=== PATIENT | female | born 1950 | race Caucasian/White ===

== ENCOUNTER 2023-09-25 08:58 | Inpatient (IN) | payer OTHER, SELFPAY ==
--- NOTE | 2023-08-21 13:16 | CM ---
Patient is scheduled for an elective R TKR on 09/18/23. Spoke with patient prior to surgery via telephone. Introduced role of Orthopedic Navigator. Patient reports that she lives with her in a two story home. There are three (1-2) steps to
enter and a flight of steps to the second floor. There are two steps into a first floor addition where the powder room is. She states that she can stay on the first floor of her home if needed. She currently functions independently and uses a cane.
She also has a rolling walker. shower seat, standard walker and raised toilet seat. She has never had VN services. PCP is Minesh Zafar.
Discussed orthopedic program and post surgical plans. Reviewed anticipated length of stay and that goal is for her to return home at discharge. Also reviewed outpatient PT. Patient is in agreement with tentative plan and will go directly to
outpatient PT at [facility]. She will have support from her when she goes home.
Patient will complete online education.
Plan: Orthopedic Navigator will remain available to assist with the care of patient and will reassess discharge needs after surgery.
[2023-08-31 12:52] VITALS: BMI 23.2
[2023-08-31 13:41] LABS: Hematocrit 33.4 % (37.0-47.0); Hemoglobin 10.9 g/dL (12.0-16.0); Mean Corp Hgb Conc. 32.6 g/dL (33.0-37.0); Mean Corpuscular Hgb 28.8 pg (27.0-31.0); Mean Corpuscular Volume 88.1 fL (81.0-99.0); Mean Platelet Volume 11.4 fL (7.4-10.4); Platelet Count 326 10^3/uL (130-400); Red Blood Cell Count 3.79 10^6/uL (4.20-5.40); Red Cell Dist. Width 14.4 % (11.5-14.5); White Blood Cell Count 8.6 10^3/uL (4.8-10.8)
[2023-08-31 14:03] LABS: ALT (SGPT) 12 U/L (0-35); AST (SGOT) 24 U/L (14-36); Alkaline Phosphatase 140 U/L (38-126); Blood Urea Nitrogen 15 mg/dl (7-17); Carbon Dioxide 21 mmol/L (22-30); Chloride 105 mmol/L (98-107); Estimated Creatinine Clearance 73 ml/min; Glucose 84 mg/dl (70-99); Potassium 4.7 mmol/L (3.5-5.1); Sodium 136 mmol/L (135-145); Total Bilirubin 0.5 mg/dl (0.2-1.3); Total Protein 6.7 g/dl (6.3-8.2); eGFR > 60.00
[2023-08-31 14:44] LABS: Glycohemoglobin (HgbA1c) 5.5 % (4.0-5.6)
[2023-09-21 11:00] VITALS: BMI 23.2
[2023-09-25] VITALS (14 sets, daily range): BP systolic 103–149; BP diastolic 54–87; PULSE 85; O2SAT 99; BMI 23.2
[2023-09-25] MEDS: TYLENOL 650 MG PO ×4 (09:03→23:24)
[2023-09-25] MEDS: CELEBREX 200 MG PO (09:03)
[2023-09-25] MEDS: BACTROBAN NASAL 1 GRAM NASAL (09:23)
[2023-09-25] MEDS: NORMOSOL-R 1000 IV ×2 (09:27→15:45)
--- NOTE | 2023-09-25 11:24 | W.DS.TRANS ---
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
-
Discharge Instructions:
Sleep Apnea Risk Low
Discharge Diagnosis/Procedures R SHEILA Mariee 09/25/23
Diet As tolerated
Activity With Walker
Driving Restrictions No driving
Bathing Restrictions OK to Shower
Other Services PT
Instructions:
Stand-Alone Forms:
Changes to Home Medications: Yes
Discharge Medications:
DC Medications w/original date entered in [employer]
Sylvia 1 cap PO PRN PRN GI issues 09/20/23
Turmeric-Elissa Tab 1 tab PO DAILY 09/20/23
amitriptyline 50 mg tablet 150 mg PO HS 09/20/23
cefadroxil 500 mg capsule 500 mg PO DIRECTED 09/20/23
cholecalciferol (vitamin D3) 25 mcg (1,000 unit) tablet (Vitamin D3) 25 mcg PO DAILY 09/20/23
diltiazem HCl 60 mg capsule,extended release 12 hr 60 mg PO BID 09/20/23
estradiol 0.75 mg/0.75 gram (0.1%) transdermal gel packet 1 topical .TWICE A WEEK 09/20/23
folic acid 1 mg tablet 1 mg PO DAILY 09/20/23
hydroxychloroquine 200 mg tablet 200 mg PO DAILY 09/20/23
latanoprost 0.005 % eye drops 1 drp ophthalmic (eye) DAILY right eye 09/20/23
levothyroxine 175 mcg tablet 175 mcg PO DAILY 09/20/23
liothyronine 5 mcg tablet (Cytomel) 5 mcg PO DAILY 09/20/23
methotrexate sodium 2.5 mg tablet 10 mg PO QWEEK 09/20/23
vibegron 75 mg tablet (Gemtesa) 75 mg PO HS 09/20/23
vitamins A,C,Q-ypns-aponmb 2,148 mcg-113 mg-45 mg-17.4 mg tablet (PreserVision AREDS) 1 tab PO DAILY 09/20/23
Saccharomyces boulardii 250 mg capsule (Florastor) 250 mg PO BID #1 cap 09/25/23
acetaminophen 325 mg capsule (Tylenol) 650 mg (2 x 325 mg) PO QID #2 caps 09/25/23
aspirin 325 mg tablet 325 mg PO DAILY blood clot prevention #1 tab 09/25/23
celecoxib 100 mg capsule 100 mg PO BID #0 caps 09/25/23
dexamethasone 4 mg tablet 4 mg PO BID #0 tabs 09/25/23
docusate sodium 100 mg capsule (Colace) 100 mg PO BID stool softner #1 cap 09/25/23
famotidine 20 mg tablet 20 mg PO HS GI prophylaxis #30 tabs 09/25/23
magnesium hydroxide 400 mg/5 mL oral suspension (Milk of Magnesia) 30 ml PO HS PRN Constipation #1 mL 09/25/23
mupirocin 2 % topical ointment 1 applic topical BID #0 grams 09/25/23
ondansetron HCl 4 mg tablet 4 mg PO Q6H PRN nausea #0 tabs 09/25/23
oxycodone 5 mg tablet 5 mg PO Q4H PRN 1 tab moderate pain, 2 tabs if severe #0 tabs 09/25/23
sennosides 8.6 mg tablet (Senokot) 17.2 mg (2 x 8.6 mg) PO BID laxative #2 tabs 09/25/23
Home Medication Changes
Saccharomyces boulardii 250 mg capsule (Florastor) 250 mg PO BID #1 cap 09/25/23�
celecoxib 100 mg capsule 100 mg PO BID #0 caps 09/25/23�
dexamethasone 4 mg tablet 4 mg PO BID #0 tabs 09/25/23�
famotidine 20 mg tablet 20 mg PO HS GI prophylaxis #30 tabs 09/25/23�
mupirocin 2 % topical ointment 1 applic topical BID #0 grams 09/25/23�
ondansetron HCl 4 mg tablet 4 mg PO Q6H PRN nausea #0 tabs 09/25/23�
oxycodone 5 mg tablet 5 mg PO Q4H PRN 1 tab moderate pain, 2 tabs if severe #0 tabs 09/25/23
Pending Results: No
--- NOTE | 2023-09-25 13:53 | PTCARENOTE ---
Patient checked on several times while waiting to be taken to the OR. Patient offered warm blankets and bathroom trip. Patient did void when it was offered. at bedside with patient. Will monitor patient.
--- NOTE | 2023-09-25 14:02 | W.PN.UPDATE ---
Update Note
Progress Note Update
Anemia-check iron and B12 levels-renal function in range
NSVT-tele
[2023-09-25] MEDS: DEMEROL 12.5 MG IV (15:21)
[2023-09-25] MEDS: ROXICODONE 5 MG PO (15:55)
--- NOTE | 2023-09-25 16:36 | SUR.PHASEI ---
patient post right total knee replacement with spinal. moving feet on arrival. anxious after 15min in pacu, shivers, shaking. able to calm patient with talking and then Demerol 12.5mg IV for shivers and pressure right knee with relief. Patient
attempted to use bedpan - unsuccessful - bladder scan for 1100. straight cath without difficulty for 1325 clear pale yellow urine. patient tolerated well. Roxicodone started as ordered. vss, discharge to [address] [place] [address] tele - hand off at bedside.
called and advised
[2023-09-25 17:17] LABS: Iron 38 ug/dl (37-170)
[2023-09-25 17:26] LABS: Percent Saturation 12 % (20-50); Total Iron Binding Capacity 296 ug/dl (265-497)
[2023-09-25 17:44] LABS: Ferritin 69.3 ng/ml (11.1-264.0)
[2023-09-25 17:59] LABS: Vitamin B12 771 pg/ml (239-931)
--- NOTE | 2023-09-25 18:00 | PTCARENOTE ---
pt admitted to room 2112 from the PACU at 1625. pt arrived awake and alert via bed. oriented to room, bed controls, call loza and plan of care with verbalized understanding. assessment and admission database completed as documented. telemetry
placed and reading SR w/pvc's. pt offering no c/o discomfort. will observe.
[2023-09-25] MEDS: ASPIRIN 325 MG PO (18:16)
[2023-09-25] MEDS: BACTROBAN 2% OINTMENT 1 APPLIC NASAL (20:55)
[2023-09-25] MEDS: SENOKOT 17.2 MG PO (20:55)
[2023-09-25] MEDS: ANCEF 5 IV (20:55)
[2023-09-25] MEDS: TORADOL 15 MG IV (20:55)
[2023-09-25] MEDS: DECADRON 4 MG PO (20:59)
[2023-09-25] MEDS: COLACE 100 MG PO (20:59)
[2023-09-25] MEDS: NEURONTIN 300 MG PO (21:18)
[2023-09-25] MEDS: ELAVIL 150 MG PO (21:18)
[2023-09-25] MEDS: XALATAN OPHTHALMIC SOLUTION 1 DROP OPHTH (21:19)
[2023-09-25] MEDS: PEPCID 40 MG PO (21:19)
[2023-09-25] MEDS: CARDIZEM 30 MG PO (22:20)
[2023-09-26 03:29] VITALS: BP 133/77
[2023-09-26] MEDS: TYLENOL 650 MG PO ×3 (04:43→11:54)
[2023-09-26] MEDS: ANCEF 5 IV (04:44)
[2023-09-26] MEDS: SYNTHROID 175 MCG PO (05:01)
[2023-09-26 06:00] VITALS: BMI 22.9
[2023-09-26 07:29] VITALS: BP 145/78
[2023-09-26] MEDS: CYTOMEL 5 MICROGRAM PO (08:04)
[2023-09-26] MEDS: ASPIRIN 325 MG PO (08:05)
[2023-09-26] MEDS: MOBIC 15 MG PO (08:05)
[2023-09-26] MEDS: CARDIZEM SR 60 MG PO (08:05)
[2023-09-26] MEDS: PLAQUENIL 200 MG PO (08:05)
[2023-09-26] MEDS: SENOKOT 17.2 MG PO (08:05)
[2023-09-26] MEDS: COLACE 100 MG PO (08:06)
[2023-09-26] MEDS: DECADRON 4 MG PO (08:06)
[2023-09-26] MEDS: TORADOL 15 MG IV (08:07)
[2023-09-26] MEDS: BACTROBAN 2% OINTMENT 1 APPLIC NASAL (08:08)
--- NOTE | 2023-09-26 08:41 | CM ---
Addendum entered by Amada Todd 09/26/23 12:40:
Patient did well in therapy. She has no concerns about discharge and has updated her daughter. Her daughter will be present for discharge instructions; RN aware.
Original Note:
Reviewed chart and held rounds with PT, OT and nursing. Patient admitted as planned for elective R TKR. Met with patient at bedside. Confirmed information previously obtained for assessment. Also discussed discharge plans. The plan is for patient to
return home at discharge. She will have support from her when she goes home. Her daughter and son-in-law will be staying with her for a week. Patient will go directly to outpatient PT and will go to [facility]. She has an appointment
scheduled for Monday, 09/26.
Patient has all needed DME.
She will use [facility] pharmacy if additional discharge prescriptions are needed.
--- NOTE | 2023-09-26 10:29 | W.PN.ORTHO ---
Today's Communication / Plan
-
d/c
Assessment
.
Distal Motor Intact: Yes
Dressing:
Clean, dry and intact.
Assessment:
Anemia-check iron borderline low range-will infuse IV prior to discharge-patient states this is baseline for years and does not know etiology. She is hemodynamically stable with no incisional drainage nor hypotension
NSVT-stable on tele-asx
Plan
.
Surgery / Date: R TKA Dr. Mariee 09/25/23
DVT Prophylaxis: Aspirin
Activity:
Out of bed.
PT/OT
Discharge Plan: Home w/ Outpatient PT
Subjective
.
.:
Patient resting comfortably.
Vital Signs and Labs
.
Vital Signs and Labs:
Lab Results
08/31/23 12:58
08/31/23 12:58
Temp Pulse Resp BP Pulse Ox
97.2 F 91 16 145/78 98
09/26/23 07:29 09/26/23 08:05 09/26/23 07:29 09/26/23 08:05 09/26/23 07:29
Non-invasive Hgb result: 10.5
Physical Exam
-
HEENT: No pallor, cyanosis, or jaundice. Throat clear.
NECK: Supple. No JVD.
RESPIRATORY: Lungs clear to auscultation.
CVS: S1, S2 normal. RRR.� No murmur, rub or gallop.
ABDOMEN: Soft, non-tender. No distension. BS+/normal.
EXTREMITIES: strength equal, no calf pain with palpation
SUPERVISOR MOLD SHOP: AOx3. No focal deficits. accounts specialist grossly intact
[2023-09-26 11:00] VITALS: BP 133/64; PULSE 92; O2SAT 100
[2023-09-26 11:06] VITALS: BP 124/68
[2023-09-26] MEDS: FERRLECIT 110 MG IV (11:19)
[2023-09-26 12:25] VITALS: BP 113/61; PULSE 94; O2SAT 100
== END 2023-09-26 14:26 | disposition home or self-care (01) | DRG 470 ==
LOC: 2 SOUTH 08:58
PROVIDERS: Physician Assistant Medical; ADMITTING PHYSICIAN Specialist; FAMILY PHYSICIAN Family Medicine
PROC: 0SRC0J9 Replacement of Right Knee Joint with Synthetic Substitute, Cemented, Open Approach (ICD-10-PCS; 2023-09-25)
DX: M17.11 Unilateral primary osteoarthritis, right knee (principal); I47.29 Other ventricular tachycardia; E89.0 Postprocedural hypothyroidism; D64.9 Anemia, unspecified; M06.9 Rheumatoid arthritis, unspecified; F31.9 Bipolar disorder, unspecified; Z85.850 Personal history of malignant neoplasm of thyroid; Z79.890 Hormone replacement therapy; Z79.899 Other long term (current) drug therapy; Z88.0 Allergy status to penicillin; Z79.52 Long term (current) use of systemic steroids
CPT/HCPCS: 36415; 73560; 80053; 82607; 82728; 83036; 83540; 83550; 85027; 86850; 86900; 86901; 87070; 97110; 97116; 97162; 97166; C1713; C1776; J2916

== ENCOUNTER → 2024-01-18 10:20 | Outpatient (REF) | payer OTHER, SELFPAY | LOC: RAD 10:20 | PROVIDERS: ATTENDING PHYSICIAN Family Medicine | DX: Z78.0 Asymptomatic menopausal state (principal) | CPT/HCPCS: 77080 ==

== ENCOUNTER → 2024-04-22 10:31 | Outpatient (REF) | payer OTHER, SELFPAY ==
[2024-04-22 11:24] LABS: % Basophils 0.8 % (0-2); % Eosinophils 2.5 % (0-6); % Immature Granulocytes 0.4 % (0-0.5); % Lymphocytes 20.1 % (20.5-51.1); % Monocytes 8.3 % (1.7-9.3); % Neutrophils 67.9 % (42.2-75.2); Absolute Basophils 0.1 10^3/uL (0-0.2); Absolute Eosinophils 0.2 10^3/uL (0-0.7); Absolute Lymphocytes 1.7 10^3/uL (1.2-3.4); Absolute Monocytes 0.7 10^3/uL (0.1-0.6); Absolute Neutrophils 5.6 10^3/uL (1.4-6.5); Hematocrit 35.7 % (37.0-47.0); Hemoglobin 11.3 g/dL (12.0-16.0); Mean Corp Hgb Conc. 31.7 g/dL (33.0-37.0); Mean Corpuscular Hgb 26.3 pg (27.0-31.0); Mean Corpuscular Volume 83.2 fL (81.0-99.0); Mean Platelet Volume 10.7 fL (7.4-10.4); Nucleated Red Blood Cells % 0 %; Platelet Count 344 10^3/uL (130-400); Red Blood Cell Count 4.29 10^6/uL (4.20-5.40); Red Cell Dist. Width 16.4 % (11.5-14.5); White Blood Cell Count 8.3 10^3/uL (4.8-10.8)
[2024-04-22 11:49] LABS: Erythrocyte Sed Rate 63 mm/hour (0-20)
[2024-04-22 12:11] LABS: ALT (SGPT) 15 U/L (0-35); AST (SGOT) 24 U/L (14-36); Albumin 4.3 g/dl (3.5-5.0); Alkaline Phosphatase 163 U/L (38-126); Blood Urea Nitrogen 21 mg/dl (7-17); Calcium 9.8 mg/dl (8.4-10.2); Carbon Dioxide 25 mmol/L (22-30); Chloride 103 mmol/L (98-107); Glucose 84 mg/dl (70-99); Potassium 4.5 mmol/L (3.5-5.1); Sodium 137 mmol/L (135-145); Total Bilirubin 0.7 mg/dl (0.2-1.3); Total Protein 7.1 g/dl (6.3-8.2); eGFR > 60.00
== END ==
LOC: REG 10:31
PROVIDERS: ATTENDING PHYSICIAN Internal Medicine Rheumatology; FAMILY PHYSICIAN Family Medicine; REFERRING PHYSICIAN Physician Assistant Surgical
DX: M05.79 Rheumatoid arthritis with rheumatoid factor of multiple sites without organ or systems involvement (principal); Z86.19 Personal history of other infectious and parasitic diseases; M17.12 Unilateral primary osteoarthritis, left knee
CPT/HCPCS: 36415; 80053; 85025; 85045; 85652; 86140

== ENCOUNTER 2024-04-29 09:40 | Inpatient (IN) | payer OTHER, SELFPAY ==
[2024-04-03 14:32] VITALS: BMI 23.5
[2024-04-03 15:12] LABS: Hematocrit 33.9 % (37.0-47.0); Hemoglobin 10.9 g/dL (12.0-16.0); Mean Corp Hgb Conc. 32.2 g/dL (33.0-37.0); Mean Corpuscular Hgb 26.8 pg (27.0-31.0); Mean Corpuscular Volume 83.5 fL (81.0-99.0); Mean Platelet Volume 11.3 fL (7.4-10.4); Platelet Count 343 10^3/uL (130-400); Red Blood Cell Count 4.06 10^6/uL (4.20-5.40); Red Cell Dist. Width 16.3 % (11.5-14.5); White Blood Cell Count 8.9 10^3/uL (4.8-10.8)
[2024-04-03 15:48] LABS: ALT (SGPT) 14 U/L (0-35); AST (SGOT) 24 U/L (14-36); Albumin 3.9 g/dl (3.5-5.0); Alkaline Phosphatase 155 U/L (38-126); Blood Urea Nitrogen 21 mg/dl (7-17); Calcium 9.5 mg/dl (8.4-10.2); Carbon Dioxide 24 mmol/L (22-30); Chloride 102 mmol/L (98-107); Estimated Creatinine Clearance 73 ml/min; Glucose 93 mg/dl (70-99); Potassium 4.8 mmol/L (3.5-5.1); Sodium 135 mmol/L (135-145); Total Bilirubin 0.2 mg/dl (0.2-1.3); Total Protein 6.7 g/dl (6.3-8.2); eGFR > 60.00
[2024-04-04 08:32] LABS: Glycohemoglobin (HgbA1c) 5.7 % (4.0-5.6)
[2024-04-23 11:48] VITALS: BMI 23.5
[2024-04-29] VITALS (9 sets, daily range): BP systolic 111–134; BP diastolic 56–77; PULSE 73; O2SAT 100
[2024-04-29] MEDS: NORMOSOL-R/PLASMALYTE-A 1000 IV ×3 (10:50→17:44)
[2024-04-29] MEDS: CELEBREX 200 MG PO (10:51)
[2024-04-29] MEDS: TYLENOL 650 MG PO ×4 (10:51→23:30)
--- NOTE | 2024-04-29 13:22 | W.PN.UPDATE ---
Update Note
Progress Note Update
L knee OA s/p L TKA w/ Dr Mariee 04/29/24
- s/p R TKA, 09/2023, by Dr Mariee
DVT prophylaxis - ASA, b/l venous foot pumps
NSVT, PVCs - monitor on tele
Chronic anemia - borderline low iron previously - IV iron prior to d/c
- Non-invasive hgb in AM
Mitral regurgitation
Thyroid cancer s/p thyroidectomy
Post-surgical hypothyroidism
RA
OAB w/ urge incontinence
Lyme disease
Glaucoma
Bipolar disorder
Depression
Osteoporosis
MARTHA positive
Tinnitus
H/o tobacco abuse
Pt is appropriate for early discharge
[2024-04-29] MEDS: ROXICODONE 5 MG PO (15:41)
--- NOTE | 2024-04-29 16:59 | SUR.PHASEI ---
patient in pacu post op left TKA - awake and alert. no pain while in pacu, anxious, reassured, questions answered. Medicated with Roxicodone and tylenol as ordered. Attempted to use bedpan - unsuccessful. Bladder scan for >850. Straight cath
using steril technique for 1050 clear yellow urine. Patient tolerated well. Transferred to [address] [place] [address]
[2024-04-29] MEDS: VITAMIN D3 (cholecalciferol) 25 MCG PO (18:03)
[2024-04-29] MEDS: ASPIRIN 325 MG PO (18:03)
[2024-04-29] MEDS: FERRLECIT 110 MG IV (18:05)
--- NOTE | 2024-04-29 19:21 | PTCARENOTE ---
Pt arrived aprox 1630 from PACU in bed. Pt had T LKA done. Dressing intact with ice pack applied. Pt with good sensation at the time to left lower leg. Admission and assessment completed. Pain level controlled. PT worked with patient and assisted
to chair for dinner. Instructed pt to ring for assistance and not to get up unassisted.
[2024-04-29] MEDS: BACTROBAN 2% OINTMENT 1 APPLIC NASAL (20:59)
[2024-04-29] MEDS: ANCEF 5 IV (20:59)
[2024-04-29] MEDS: PLAQUENIL 100 MG PO (21:00)
[2024-04-29] MEDS: SENOKOT 17.2 MG PO (21:01)
[2024-04-29] MEDS: CARDIZEM SR 60 MG PO (21:01)
[2024-04-29] MEDS: COLACE 100 MG PO (21:02)
[2024-04-29] MEDS: PEPCID 20 MG PO (21:02)
[2024-04-29] MEDS: DECADRON 4 MG PO (21:02)
[2024-04-29] MEDS: FOLVITE 1 MG PO (21:02)
[2024-04-29] MEDS: ELAVIL 150 MG PO (21:03)
[2024-04-29] MEDS: XALATAN OPHTHALMIC SOLUTION 1 DROP OPHTH (21:08)
[2024-04-30] MEDS: ANCEF 5 IV (03:43)
[2024-04-30 03:45] VITALS: BP 122/61
[2024-04-30] MEDS: TYLENOL 650 MG PO ×2 (03:48→08:20)
[2024-04-30] MEDS: SYNTHROID 175 MCG PO (05:29)
[2024-04-30] MEDS: CYTOMEL 5 MICROGRAM PO (05:29)
--- NOTE | 2024-04-30 06:51 | PTCARENOTE ---
Pt offered scheduled 0630 oxycodone. Pt denied pain and refused medication. education provided regarding pain management prior to physical therapy.
[2024-04-30 07:20] VITALS: BP 114/6
[2024-04-30] MEDS: MYRBETRIQ EXTENDED RELEASE 25 MG PO (08:19)
[2024-04-30] MEDS: FOLVITE 1 MG PO (08:19)
[2024-04-30] MEDS: COLACE 100 MG PO (08:19)
[2024-04-30] MEDS: CARDIZEM SR 60 MG PO (08:19)
[2024-04-30] MEDS: DECADRON 4 MG PO (08:19)
[2024-04-30] MEDS: SENOKOT 17.2 MG PO (08:19)
[2024-04-30] MEDS: CELEBREX 200 MG PO (08:19)
[2024-04-30] MEDS: VITAMIN D3 (cholecalciferol) 25 MCG PO (08:19)
[2024-04-30] MEDS: ASPIRIN 325 MG PO (08:19)
[2024-04-30 08:20] VITALS: BP 107/51; BP 115/68
[2024-04-30] MEDS: BACTROBAN 2% OINTMENT 1 APPLIC NASAL (08:20)
[2024-04-30] MEDS: PLAQUENIL 100 MG PO (08:22)
[2024-04-30 08:27] LABS: Hepatitis C Antibody Negative (Negative)
--- NOTE | 2024-04-30 08:50 | W.PN.ORTHO ---
Today's Communication / Plan
-
Await PT recs.
D/c later today if remaining clinically stable.
Assessment
.
Distal Motor Intact: Yes
Dressing:
Old incisional bleeding along incision line
Assessment:
L knee OA s/p L TKA w/ Dr Mariee 04/29/24
- s/p R TKA, 09/2023, by Dr Mariee
DVT prophylaxis - ASA, b/l venous foot pumps
Post-op urinary retention - IV straight cath x1 in PACU - resolved by POD 1
NSVT, PVCs - rhythm stable on tele
Chronic anemia - borderline low iron previously - s/p IV iron POD 0
- Non-invasive hgb stable at 10.1 POD 1
- Asymptomatic, hemodynamically stable
- Will suggest oral iron upon d/c
Mitral regurgitation
Thyroid cancer s/p thyroidectomy
Post-surgical hypothyroidism
RA
OAB w/ urge incontinence
Lyme disease
Glaucoma
Bipolar disorder
Depression
Osteoporosis
MARTHA positive
Tinnitus
H/o tobacco abuse
Pt is appropriate for early discharge
Plan
.
Surgery / Date: L TKA w/ Dr Mariee 04/29/24
DVT Prophylaxis: Aspirin
Activity:
Out of bed.
PT/OT
Discharge Plan: Home w/ Outpatient PT
Subjective
.
.:
Patient resting comfortably in her chair.
L knee pain overnight well controlled w/ minimal pain meds.
Denies any new significant complaints.
Did well w/ OT this AM. Will work w/ PT after breakfast.
Eager for potential d/c today.
Vital Signs and Labs
.
Vital Signs and Labs:
Lab Results
04/03/24 14:06
04/03/24 14:06
Temp Pulse Resp BP Pulse Ox
97.5 F 84 16 114/6 96
04/30/24 07:20 04/30/24 07:20 04/30/24 07:20 04/30/24 07:20 04/30/24 07:20
Non-invasive Hgb result: 10.1
Physical Exam
-
HEENT: No pallor, cyanosis, or jaundice. Throat clear.
NECK: Supple. No JVD.
RESPIRATORY: Lungs clear to auscultation.
CVS: S1, S2 normal. RRR.�
ABDOMEN: Soft, non-tender. No distension.
EXTREMITIES: Mild post-surgical L knee edema. Strength equal, no calf pain with palpation/dorsiflexion. Calves soft.
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 No focal deficits. food mobile driver grossly intact
[2024-04-30 09:15] VITALS: BP 110/58; PULSE 89; O2SAT 100
--- NOTE | 2024-04-30 09:21 | W.DS.TRANS ---
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
-
Discharge Instructions:
Sleep Apnea Risk Low
Discharge Diagnosis/Procedures L knee OA s/p L TKA w/ Dr Mariee 04/29/24
Diet Regular
Activity As tolerated,With Walker
Driving Restrictions Not until seen by your Dr
Bathing Restrictions OK to Shower
Other Services PT
Wound Care Dressing to be removed 1 week post-surgery.
[place] to be removed at 2 week follow-up with
surgeon's office.
Instructions:
Stand-Alone Forms: Total Hip/Knee Replacement D/C
Changes to Home Medications: Yes
Discharge Medications:
DC Medications w/original date entered in [employer]
amitriptyline 50 mg tablet 150 mg PO HS Depression 09/20/23
cholecalciferol (vitamin D3) 25 mcg (1,000 unit) tablet (Vitamin D3) 25 mcg PO DAILY Supplement 09/20/23
diltiazem HCl 60 mg capsule,extended release 12 hr 60 mg PO BID Arrhythmia 09/20/23
estradiol 0.75 mg/0.75 gram (0.1%) transdermal gel packet 1 topical .TWICE A WEEK Hormonal Agent 09/20/23
folic acid 1 mg tablet 1 mg PO BID Supplement 09/20/23
latanoprost 0.005 % eye drops 1 drp ophthalmic (eye) DAILY right eye 09/20/23
levothyroxine 175 mcg tablet 175 mcg PO MOTUWETHFRSA Thyroid 09/20/23
liothyronine 5 mcg tablet (Cytomel) 5 mcg PO MOTUWETHFRSA Thyroid 09/20/23
vitamins A,C,L-chqr-dvatji 2,148 mcg-113 mg-45 mg-17.4 mg tablet (PreserVision AREDS) 1 tab PO DAILY Eye Condition 09/20/23
mupirocin 2 % topical ointment 1 applic topical BID #0 grams 09/25/23
Menopause Health 1 dose PO DAILY Supplement 04/23/24
calcium 1 dose PO DAILY Supplement 04/23/24
krill oil 1 dose PO DAILY Supplement 04/23/24
magnesium 1 dose PO DAILY Supplement 04/23/24
mirabegron 8 mg/mL oral suspension,extended release (Myrbetriq) 25 mg PO DAILY Urinary Issue 04/23/24
vitamin K2 1 dose PO DAILY Supplement 04/23/24
Saccharomyces boulardii 250 mg capsule (Florastor) 250 mg PO BID #14 caps 04/30/24
acetaminophen 325 mg tablet (Tylenol) 650 mg (2 x 325 mg) PO Q4HWA #60 tabs 04/30/24
aspirin 325 mg tablet 325 mg PO DAILY #30 tabs 04/30/24
cefadroxil 500 mg capsule 500 mg PO Q12H #14 caps 04/30/24
celecoxib 100 mg capsule 100 mg PO BID #30 caps 04/30/24
dexamethasone 4 mg tablet 4 mg PO Q12H Anti-inflammatory #7 tabs 04/30/24
docusate sodium 100 mg capsule 100 mg PO BID #30 caps 04/30/24
famotidine 20 mg tablet 20 mg PO HS #30 tabs 04/30/24
ferrous sulfate 325 mg (65 mg iron) tablet 325 mg PO DAILY #30 tabs 04/30/24
hydroxychloroquine 200 mg tablet 100 mg (1/2 x 200 mg) PO BID #1 tab 04/30/24
methotrexate sodium 2.5 mg tablet 10 mg (4 x 2.5 mg) PO WE Autoimmune Disorder #0 tabs 04/30/24
ondansetron HCl 4 mg tablet 4 mg PO Q6H PRN nausea and vomiting #30 tabs 04/30/24
oxycodone 5 mg tablet 5 - 10 mg (1 - 2 x 5 mg) PO Q6H PRN moderate-severe pain #30 tabs 04/30/24
sennosides 8.6 mg tablet (Leslye-jennifer) 17.2 mg (2 x 8.6 mg) PO BID #30 tabs 04/30/24
Home Medication Changes
Saccharomyces boulardii 250 mg capsule (Florastor) 250 mg PO BID #14 caps 04/30/24
acetaminophen 325 mg tablet (Tylenol) 650 mg (2 x 325 mg) PO Q4HWA #60 tabs 04/30/24
aspirin 325 mg tablet 325 mg PO DAILY #30 tabs 04/30/24
cefadroxil 500 mg capsule 500 mg PO Q12H #14 caps 04/30/24
celecoxib 100 mg capsule 100 mg PO BID #30 caps 04/30/24
dexamethasone 4 mg tablet 4 mg PO Q12H Anti-inflammatory #7 tabs 04/30/24
docusate sodium 100 mg capsule 100 mg PO BID #30 caps 04/30/24
famotidine 20 mg tablet 20 mg PO HS #30 tabs 04/30/24
ferrous sulfate 325 mg (65 mg iron) tablet 325 mg PO DAILY #30 tabs 04/30/24
ondansetron HCl 4 mg tablet 4 mg PO Q6H PRN nausea and vomiting #30 tabs 04/30/24
oxycodone 5 mg tablet 5 - 10 mg (1 - 2 x 5 mg) PO Q6H PRN moderate-severe pain #30 tabs 04/30/24
sennosides 8.6 mg tablet (Leslye-jennifer) 17.2 mg (2 x 8.6 mg) PO BID #30 tabs 04/30/24
Pending Results: No
--- NOTE | 2024-04-30 10:14 | CM ---
Patient seen at bedside.
IA completed
CM consult completed
Lives with spouse 2 story honme, 2 steps to enter, flight to second floor bedroom, powder room 1st floor
PLOF: independent
DME: matt [facility]rera
PT/OT evals completed-outpatient rec
States has an appt with outpatient PT with [facility] in [place]
Denies insecurities
IMM explained & signed. In chart
PCP: Minesh Zafar
Pharmacy: [facility], [facility], [place]
PLAN: home with outpatient PT with [facility] in [place]
to transport
[2024-04-30 11:15] VITALS: BP 125/62
== END 2024-04-30 11:34 | disposition home or self-care (01) | DRG 470 ==
LOC: 2 SOUTH 09:40
PROVIDERS: ADMITTING PHYSICIAN Specialist; FAMILY PHYSICIAN Family Medicine; REFERRING PHYSICIAN Internal Medicine Cardiovascular Disease
PROC: 0SRD0J9 Replacement of Left Knee Joint with Synthetic Substitute, Cemented, Open Approach (ICD-10-PCS; 2024-04-29)
DX: M17.12 Unilateral primary osteoarthritis, left knee (principal); I47.20 Ventricular tachycardia, unspecified; I34.0 Nonrheumatic mitral (valve) insufficiency; M06.9 Rheumatoid arthritis, unspecified; F31.9 Bipolar disorder, unspecified; E89.0 Postprocedural hypothyroidism; R33.8 Other retention of urine; D64.9 Anemia, unspecified; N32.81 Overactive bladder; I49.3 Ventricular premature depolarization; R76.8 Other specified abnormal immunological findings in serum; H40.9 Unspecified glaucoma; E61.1 Iron deficiency; E53.8 Deficiency of other specified B group vitamins; E55.9 Vitamin D deficiency, unspecified; Z96.651 Presence of right artificial knee joint; Z87.891 Personal history of nicotine dependence; Z79.890 Hormone replacement therapy; Z79.899 Other long term (current) drug therapy; Z88.0 Allergy status to penicillin; Z85.850 Personal history of malignant neoplasm of thyroid
CPT/HCPCS: 36415; 73560; 80053; 83036; 85027; 86803; 86850; 86900; 86901; 87070; 97162; 97166; 97530; 97535; C1713; C1776; J2916

== ENCOUNTER → 2024-09-10 13:48 | Outpatient (REF) | payer OTHER, SELFPAY | LOC: RAD 13:48 | PROVIDERS: ATTENDING PHYSICIAN Family Medicine | DX: R60.0 Localized edema (principal) | CPT/HCPCS: 73100; 73120 ==

== ENCOUNTER 2024-09-23 09:43 | Inpatient (IN) | payer OTHER, SELFPAY ==
--- NOTE | 2024-08-09 14:15 | CM ---
CM reviewed medical records. Patient confirmed demographics. Patient lives independently with . Patient is not current with any VN agency. No reported history fo SNF. Patient has DME equipment: walker, cane, raised toilet seat.
Patient is active with her PCP. Patient plans to use [facility] for medication services.
PLAN: home, with outpatient PT.
[2024-09-10 14:10] VITALS: BMI 23.6
[2024-09-10 14:44] LABS: Hematocrit 32.4 % (37.0-47.0); Hemoglobin 10.8 g/dL (12.0-16.0); Mean Corp Hgb Conc. 33.3 g/dL (33.0-37.0); Mean Corpuscular Volume 82.9 fL (81.0-99.0); Platelet Count 305 10^3/uL (130-400); Red Cell Dist. Width 16.9 % (11.5-14.5)
[2024-09-10 14:55] VITALS: BMI 23.6
[2024-09-10 15:01] LABS: ALT (SGPT) 17 U/L (0-35); AST (SGOT) 26 U/L (14-36); Albumin 4.1 g/dl (3.5-5.0); Alkaline Phosphatase 135 U/L (38-126); Blood Urea Nitrogen 24 mg/dl (7-17); Calcium 9.6 mg/dl (8.4-10.2); Carbon Dioxide 21 mmol/L (22-30); Chloride 108 mmol/L (98-107); Estimated Creatinine Clearance 58 ml/min; Glucose 84 mg/dl (70-99); Potassium 5.2 mmol/L (3.5-5.1); Sodium 138 mmol/L (135-145); Total Protein 6.7 g/dl (6.3-8.2); eGFR > 60.00
[2024-09-11 08:10] LABS: Glycohemoglobin (HgbA1c) 5.9 % (4.0-5.6)
[2024-09-11 15:49] LABS: Iron 75 ug/dl (37-170)
[2024-09-11 15:58] LABS: Total Iron Binding Capacity 319 ug/dl (265-497)
[2024-09-11 16:25] LABS: Ferritin 46.8 ng/ml (11.1-264.0)
[2024-09-11 16:57] LABS: Folate > 20.0 ng/ml (2.76-20); Vitamin B12 809 pg/ml (239-931)
[2024-09-23] VITALS (11 sets, daily range): BP systolic 103–127; BP diastolic 51–73; PULSE 83; O2SAT 100; BMI 23.6
[2024-09-23] MEDS: TYLENOL 650 MG PO ×3 (10:19→20:55)
[2024-09-23] MEDS: CELEBREX 200 MG PO (10:19)
[2024-09-23] MEDS: NORMOSOL-R/PLASMALYTE-A 1000 IV ×2 (10:29→18:21)
--- NOTE | 2024-09-23 12:22 | W.PN.ORTHO ---
Today's Communication / Plan
-
d/c when stable
Assessment
.
Dressing:
Clean, dry and intact.
Assessment:
Balance and gait disturbance-fall precautions
Hypokalemia on PATs-check K and replete if indicated
EASTON-IV iron-monitor hgb
Plan
.
Surgery / Date: R TKA Revision Dr. Mariee 09/23/24
DVT Prophylaxis: Aspirin
Activity:
Out of bed.
PT/OT
Discharge Plan: Home w/ Outpatient PT
Vital Signs and Labs
.
Vital Signs and Labs:
Lab Results
09/10/24 12:51
09/10/24 12:51
Temp Pulse Resp BP Pulse Ox
97.9 F 92 18 127/68 98
09/23/24 10:11 09/23/24 10:11 09/23/24 10:11 09/23/24 10:11 09/23/24 10:11
--- NOTE | 2024-09-23 12:51 | W.DS.TRANS ---
Addendum entered and electronically signed by Nyla Mena PA-C 09/24/24 10:35:
Oxy changed to [place] due to nausea
Original Note:
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
-
Discharge Instructions:
Sleep Apnea Risk Low
Discharge Diagnosis/Procedures R TKA Revision Dr. Mariee 09/23/24
Diet As tolerated
Activity With Walker
Driving Restrictions No driving
Bathing Restrictions OK to Shower
Other Services PT
Instructions:
Stand-Alone Forms: Total Hip/Knee Replacement D/C
Changes to Home Medications: Yes
Discharge Medications:
DC Medications w/original date entered in [employer]
amitriptyline 50 mg tablet 150 mg PO HS Depression 09/20/23
cholecalciferol (vitamin D3) 25 mcg (1,000 unit) tablet (Vitamin D3) 25 mcg PO DAILY Supplement 09/20/23
diltiazem HCl 60 mg capsule,extended release 12 hr 60 mg PO BID Arrhythmia 09/20/23
folic acid 1 mg tablet 1 mg PO DAILY Supplement 09/20/23
latanoprost 0.005 % eye drops 1 drp RIGHT EYE HS 09/20/23
levothyroxine 175 mcg tablet 175 mcg PO MOTUWETHFRSA Thyroid 09/20/23
liothyronine 5 mcg tablet (Cytomel) 5 mcg PO MOTUWETHFRSA Thyroid 09/20/23
vitamins A,C,E-etim-xbtzle 2,148 mcg-113 mg-45 mg-17.4 mg tablet (PreserVision AREDS) 1 tab PO BID Eye Condition 09/20/23
Held on 09/23/24. Instructions: Resume on 10/01/24.
krill oil 1 dose PO DAILY Supplement 04/23/24
Held on 09/23/24. Instructions: Resume on 10/01/24.
azithromycin 250 mg tablet 250 mg PO DAILY 09/09/24
calcium carbonate 500 mg PO DAILY 09/09/24
estradiol 0.01% (0.1 mg/gram) vaginal cream 1 applic vaginal MOTH 09/09/24
hydroxychloroquine 200 mg tablet 200 mg PO DAILY 09/09/24
lithium carbonate 300 mg tablet 300 mg PO HS 09/09/24
magnesium 200 mg tablet 300 mg PO DAILY 09/09/24
mirabegron 50 mg tablet,extended release 24 hr (Myrbetriq) 50 mg PO HS 09/09/24
vitamin K2 100 mcg capsule 100 mcg PO DAILY 09/09/24
Held on 09/23/24. Instructions: Resume on 10/01/24.
mupirocin 2 % topical ointment 1 applic intranasal BID #1 tube 09/10/24
sulfamethoxazole 800 mg-trimethoprim 160 mg tablet (Bactrim DS) 1 tab PO BID 09/10/24
dexamethasone 4 mg tablet 4 mg PO BID Anti-inflammatory #5 tabs 09/12/24
famotidine 20 mg tablet 20 mg PO HS #30 tabs 09/12/24
ondansetron HCl 4 mg tablet 4 mg PO Q6H PRN nausea and vomiting #30 tabs 09/12/24
oxycodone 5 mg tablet 5 - 10 mg (1 - 2 x 5 mg) PO Q6H PRN moderate-severe pain #30 tabs 09/12/24
Saccharomyces boulardii 250 mg capsule (Florastor) 250 mg PO BID #1 cap 09/23/24
acetaminophen 325 mg tablet (Tylenol) 650 mg (2 x 325 mg) PO QID #1 tab 09/23/24
aspirin 325 mg tablet 325 mg PO DAILY blood clot prevention #1 tab 09/23/24
celecoxib 200 mg capsule (Celebrex) 200 mg PO DAILY #0 caps 09/23/24
docusate sodium 100 mg capsule (Colace) 100 mg PO BID stool softner #1 cap 09/23/24
magnesium hydroxide 400 mg/5 mL oral suspension (Milk of Magnesia) 30 ml PO HS PRN constipation #1 mL 09/23/24
sennosides 8.6 mg tablet (Senokot) 17.2 mg (2 x 8.6 mg) PO BID laxative #2 tabs 09/23/24
Home Medication Changes
dexamethasone 4 mg tablet 4 mg PO BID Anti-inflammatory #5 tabs 09/12/24
famotidine 20 mg tablet 20 mg PO HS #30 tabs 09/12/24
ondansetron HCl 4 mg tablet 4 mg PO Q6H PRN nausea and vomiting #30 tabs 09/12/24
oxycodone 5 mg tablet 5 - 10 mg (1 - 2 x 5 mg) PO Q6H PRN moderate-severe pain #30 tabs 09/12/24
Saccharomyces boulardii 250 mg capsule (Florastor) 250 mg PO BID #1 cap 09/23/24
acetaminophen 325 mg tablet (Tylenol) 650 mg (2 x 325 mg) PO QID #1 tab 09/23/24
aspirin 325 mg tablet 325 mg PO DAILY blood clot prevention #1 tab 09/23/24
celecoxib 200 mg capsule (Celebrex) 200 mg PO DAILY #0 caps 09/23/24
docusate sodium 100 mg capsule (Colace) 100 mg PO BID stool softner #1 cap 09/23/24
magnesium hydroxide 400 mg/5 mL oral suspension (Milk of Magnesia) 30 ml PO HS PRN constipation #1 mL 09/23/24
sennosides 8.6 mg tablet (Senokot) 17.2 mg (2 x 8.6 mg) PO BID laxative #2 tabs 09/23/24
Pending Results: No
[2024-09-23] MEDS: MORPHINE SULFATE 1 MG IV (14:40)
[2024-09-23] MEDS: ROXICODONE 5 MG PO (14:57)
--- NOTE | 2024-09-23 15:45 | PTCARENOTE ---
Pt received from the PACU via bed.Transport was w/o incident. Pt is AAOx3, NSR on circulation supervisor, HRR, lungs are clear, resp. easy. VSS, Pt is afebrile. Pt denies nausea and reports pain to right knee as mild. Pt w/ antibacterial dressing to right
knee, c/d/i w/ scant amount of drainage noted. Pt able to wiggle toes right foot, and reports full return of sensation to right leg. Pt instructed on plan of care. Pt verbalized understanding of instructions. Call loza is within reach.
[2024-09-23] MEDS: ASPIRIN 325 MG PO (18:23)
[2024-09-23] MEDS: FERRLECIT 110 MG IV (18:25)
[2024-09-23] MEDS: CYTOMEL 5 MICROGRAM PO (18:25)
[2024-09-23] MEDS: ZOFRAN 4 MG IV (18:26)
[2024-09-23] MEDS: SYNTHROID 175 MCG PO (18:28)
[2024-09-23] MEDS: COLACE 100 MG PO (20:54)
[2024-09-23] MEDS: BACTROBAN 2% OINTMENT 1 APPLIC NASAL (20:55)
[2024-09-23] MEDS: DECADRON 4 MG IV (20:55)
[2024-09-23] MEDS: ANCEF 5 IV (20:55)
[2024-09-23] MEDS: CARDIZEM SR 60 MG PO (20:55)
[2024-09-23] MEDS: SENOKOT 17.2 MG PO (20:56)
[2024-09-23] MEDS: TORADOL 15 MG IV (21:01)
[2024-09-23] MEDS: ELAVIL 150 MG PO (22:31)
[2024-09-23] MEDS: ESKALITH REGULAR RELEASE 300 MG PO (22:32)
[2024-09-23] MEDS: PEPCID 20 MG PO (22:32)
[2024-09-23] MEDS: MYRBETRIQ EXTENDED RELEASE 50 MG PO (22:32)
[2024-09-23] MEDS: XALATAN OPHTHALMIC SOLUTION 1 DROP RIGHT EYE (22:33)
[2024-09-23] MEDS: COMPAZINE 5 MG IV (22:59)
[2024-09-24] VITALS (7 sets, daily range): BP systolic 81–121; BP diastolic 41–63; PULSE 86–99; O2SAT 98
[2024-09-24] MEDS: TYLENOL PO ×2 (00:23→04:06)
[2024-09-24] MEDS: ANCEF 5 IV (03:24)
[2024-09-24] MEDS: CYTOMEL 5 MICROGRAM PO (06:17)
[2024-09-24] MEDS: FERRLECIT IV (06:24)
[2024-09-24] MEDS: SYNTHROID 175 MCG PO (06:29)
[2024-09-24] MEDS: CARDIZEM SR 60 MG PO (07:52)
[2024-09-24] MEDS: ASPIRIN 325 MG PO (07:53)
[2024-09-24] MEDS: PLAQUENIL 200 MG PO (07:53)
[2024-09-24] MEDS: TYLENOL 650 MG PO ×2 (07:54→11:23)
[2024-09-24] MEDS: MAG-TAB SR 84 MG PO (07:54)
[2024-09-24] MEDS: SENOKOT 17.2 MG PO (07:54)
[2024-09-24] MEDS: TORADOL 15 MG IV (07:54)
[2024-09-24] MEDS: MOBIC 15 MG PO (07:54)
[2024-09-24] MEDS: COLACE 100 MG PO (07:54)
[2024-09-24] MEDS: DECADRON 4 MG IV (07:55)
[2024-09-24] MEDS: BACTROBAN 2% OINTMENT 1 APPLIC NASAL (07:55)
--- NOTE | 2024-09-24 09:56 | CM ---
Cm reviewed medical records. Patient confirmed outpatient PT appointment at [facility] in [place].
PLAN: home with outpatient PT.
[2024-09-24] MEDS: NORMOSOL-R/PLASMALYTE-A 250 IV (11:00)
--- NOTE | 2024-09-24 12:32 | W.PN.ORTHO ---
Today's Communication / Plan
-
d/c later today if stable
Assessment
.
Distal Motor Intact: Yes
Dressing:
Clean, dry and intact.
Assessment:
Orthostatic hypotension--IVF+ Midodrine-rechaeck at 1430
N/V-change Oxy to [place]
Balance and gait disturbance-fall precautions
Hypokalemia on PATs-check K and replete if indicated--awaiting lab
EASTON-IV iron-hgb stable
Plan
.
Surgery / Date: R TKA Revision Dr. Mariee 09/23/24
DVT Prophylaxis: Aspirin
Activity:
Out of bed.
PT/OT
Discharge Plan: Home w/ Outpatient PT
Subjective
.
.:
N/V after Oxy yesterday
Dizzy when standing
Vital Signs and Labs
.
Vital Signs and Labs:
Lab Results
09/10/24 12:51
09/23/24 12:28
Temp Pulse Resp BP Pulse Ox
97.8 F 87 16 100/43 98
09/24/24 11:20 09/24/24 11:20 09/24/24 11:20 09/24/24 11:20 09/24/24 11:20
Non-invasive Hgb result: 14.1
Physical Exam
-
HEENT: No pallor, cyanosis, or jaundice. Throat clear.
NECK: Supple. No JVD.
RESPIRATORY: Lungs clear to auscultation.
CVS: S1, S2 normal. RRR.� No murmur, rub or gallop.
ABDOMEN: Soft, non-tender. No distension. BS+/normal.
EXTREMITIES: strength equal, no calf pain with palpation
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 No focal deficits. die welder grossly intact
[2024-09-24 13:57] LABS: Blood Urea Nitrogen 23 mg/dl (7-17); Calcium 9.3 mg/dl (8.4-10.2); Carbon Dioxide 24 mmol/L (22-30); Chloride 107 mmol/L (98-107); Estimated Creatinine Clearance 65 ml/min; Glucose 142 mg/dl (70-99); Potassium 4.6 mmol/L (3.5-5.1); Sodium 136 mmol/L (135-145); eGFR > 60.00
== END 2024-09-24 16:42 | disposition home or self-care (01) | DRG 467 ==
LOC: 2 SOUTH 09:43
PROVIDERS: Physician Assistant Medical; ADMITTING PHYSICIAN Specialist; FAMILY PHYSICIAN Family Medicine
PROC: 0SRC0J9 Replacement of Right Knee Joint with Synthetic Substitute, Cemented, Open Approach (ICD-10-PCS; 2024-09-23)
PROC: 0SPC0JZ Removal of Synthetic Substitute from Right Knee Joint, Open Approach (ICD-10-PCS; 2024-09-23)
DX: S72.401A Unspecified fracture of lower end of right femur, initial encounter for closed fracture (principal); I47.20 Ventricular tachycardia, unspecified; M97.11XA Periprosthetic fracture around internal prosthetic right knee joint, initial encounter; I95.1 Orthostatic hypotension; R11.2 Nausea with vomiting, unspecified; R26.9 Unspecified abnormalities of gait and mobility; E87.5 Hyperkalemia; D50.9 Iron deficiency anemia, unspecified; X58.XXXA Exposure to other specified factors, initial encounter; E89.0 Postprocedural hypothyroidism; F31.9 Bipolar disorder, unspecified; H35.30 Unspecified macular degeneration; H40.9 Unspecified glaucoma; N32.81 Overactive bladder; N39.41 Urge incontinence; H93.19 Tinnitus, unspecified ear; M81.0 Age-related osteoporosis without current pathological fracture; N18.9 Chronic kidney disease, unspecified; I34.0 Nonrheumatic mitral (valve) insufficiency; M06.9 Rheumatoid arthritis, unspecified; R73.03 Prediabetes; I49.3 Ventricular premature depolarization; H91.93 Unspecified hearing loss, bilateral; Z96.653 Presence of artificial knee joint, bilateral; Z85.850 Personal history of malignant neoplasm of thyroid; Z87.891 Personal history of nicotine dependence; Z87.440 Personal history of urinary (tract) infections
CPT/HCPCS: 36415; 73560; 80048; 80053; 82607; 82728; 82746; 83036; 83540; 83550; 85027; 86850; 86900; 86901; 87070; 97110; 97116; 97162; 97166; 97535; C1713; C1762; C1776; J2916

== ENCOUNTER → 2025-02-24 13:53 | Outpatient (REF) | payer OTHER, SELFPAY | LOC: HWRAD 13:53 | PROVIDERS: ATTENDING PHYSICIAN Family Medicine | DX: R22.32 Localized swelling, mass and lump, left upper limb (principal) | CPT/HCPCS: 93971 ==